=== PATIENT | female | born 1970 | race Caucasian/White ===

== ENCOUNTER 2019-07-14 14:46 | Emergency (ER) | payer SELFPAY ==
[2019-07-14 15:55] VITALS: TEMP 98; O2SAT 99
--- NOTE | 2019-07-14 17:31 | ED.PDOC ---
History of Present Illness - General Chief Complaint: Problem Stated Complaint: feels like uterus is going to fall out Time Seen by Provider: 07/14/19 16:37 Source: patient, RN notes reviewed, Vital Signs reviewed Exam Limitations: no limitations - History of Present Illness Initial Comments: Pt was at work and had acute onset of lower abdominal pain and cramping and back pain. Pt describes it like labor pain. Pt denies dysuria or vaginal discharge. Pt is not sexually active (x3.5yrs). Pt's menses are irregular as she is perimenopausal. Pt denies any f/c/v/d/dysuria/burrell/dizziness. +lower abd pain/back pain. Nothing seemed to make the pain better. Movement made it worse. Timing/Duration: this morning Quality: severe, cramping, sharpness Onset Location: RLQ, LLQ, suprapubic, other - low back Radiation: none Activites at Onset: physical activity Prior abdominal problems: none Sexual intercourse history: not active, greater than 2 months ago Improving Factors: nothing Worsening Factors: movement Associated Symptoms: abdominal pain Allergies/Adverse Reactions: Allergies NO KNOWN ALLERGY Allergy (Verified 07/14/19 15:56) Review of Systems - Review of Systems Constitutional: States: no symptoms reported EENTM: States: no symptoms reported Respiratory: States: no symptoms reported Cardiology: States: no symptoms reported Gastrointestinal/Abdominal: States: abdominal pain - lower abdomen. Denies: constipation, diarrhea, nausea Genitourinary: States: pain. Denies: discharge, dysuria, frequency Musculoskeletal: States: back pain. Denies: muscle pain, muscle stiffness Skin: States: no symptoms reported Neurological: States: no symptoms reported. Denies: headache, numbness, paresthesia, tingling, tremors Endocrine: States: no symptoms reported Hematologic/Lymphatic: States: no symptoms reported All other Systems: Reviewed and Negative Past Medical History (General) - Patient Medical History Hx Seizures: No Hx Asthma: No Hx Hypertension: No Hx Diabetes: No Surgical History: no surgical history - Vaccination History Hx Tetanus, Diphtheria Vaccination: No Hx Influenza Vaccination: No Hx Pneumococcal Vaccination: No Immunizations Up to Date: No - Social History Hx Tobacco Use: Yes Hx Alcohol Use: Yes - occ Hx Substance Use: No Hx Depression: No - Female History Patient is a Female of Child Bearing Age (10 -59 yrs old): Yes Patient : No Family Medical History - Family History Mother Family History: Unknown Physical Exam - Physical Exam General Appearance: Alert, Comfortable, Well Developed, Well Groomed, Well Hydrated, Well Nourished Eyes, Ears, Nose, Throat Exam: PERRL/EOMI, normal ENT inspection, pharynx normal Neck: non-tender, full range of motion, supple, normal inspection Cardiovascular/Respiratory: regular rate, rhythm, no M/R/G, normal peripheral pulses, no JVD, normal breath sounds, no respiratory distress Gastrointestinal/Abdominal: normal bowel sounds, non tender, soft Pelvic Exam: external exam normal, speculum exam normal, no cerv. motion tender, other - pt with slight discomfort of right ovary on palpation. Ovary slightly enlarged. Back Exam: normal inspection, no CVA tenderness, no vertebral tenderness Extremity: normal range of motion, non-tender, normal inspection, no pedal edema Neurologic: wwe wrestler II-XII nml as tested, no motor/sensory deficits, alert, normal mood/affect, oriented x 3 Skin Exam: normal color, warm/dry Lymphatic: no adenopathy Progress - Progress Progress: 07/14/19 17:41 Pt's pain resolved in the department. Exam is normal. Suspect ovarian cyst with rupture. Plan on d/c home. D/w pt and she voices agreement and understanding of POC. - Results/Orders Results/Orders: Laboratory Results - last 24 hr 07/14/19 16:00 Urine Color Yellow Urine Appearance Clear Urine pH 6.0 Ur Specific [place] 1.020 Urine Protein Negative Urine Glucose (UA) Negative Urine Ketones Negative Urine Blood Trace-intact H Urine Nitrite Negative Urine Bilirubin Negative Urine Urobilinogen 0.2 Ur Leukocyte Esterase Negative Urine RBC 1-3 Urine WBC 0-1 Ur Epithelial Cells 3-5 Urine Bacteria Rare Urine Mucus Trace Departure - Departure Clinical Impression: Back pain at L4-L5 level, Blanca-menopausal, Pelvic pain Abdominal pain Qualifiers: Abdominal location: lower abdomen, unspecified Qualified Code(s): R10.30 - Lower abdominal pain, unspecified Time of Disposition: 17:44 Disposition: Discharge to Home or Self Care Condition: Good Departure Forms: ED Discharge - Pt. Copy, Patient Portal Self Enrollment Instructions: Acute Abdomen (Belly Pain), Adult (DC), Low Back Pain (DC)
[2019-07-14 19:21] VITALS: BP 112/75
== END 2019-07-14 17:50 | disposition home or self-care (01) ==
LOC: ER 14:46
DX: R10.30 Lower abdominal pain, unspecified (principal); R10.2 Pelvic and perineal pain; M54.5 Low back pain; Z78.0 Asymptomatic menopausal state